=== PATIENT | female | born 1945 | race Caucasian/White ===

== ENCOUNTER 2024-01-18 09:51 | Inpatient (IN) ==
[2024-01-18] MEDS: LACTATED RINGERS 1,000 ML IV ONE (10:21)
[2024-01-18 10:37] LABS: Basophils # (Auto) 0.03 K/mcL (0.00-0.30); Basophils % (Auto) 0.6 % (0.0-2.0); Eosinophils # (Auto) 0.12 K/mcL (0.00-0.70); Eosinophils % (Auto) 2.4 % (0.0-7.0); Hematocrit 37.8 % (34.1-44.9); Hemoglobin 12.4 g/dL (11.2-15.7); Lymphocytes # (Auto) 0.97 K/mcL (1.50-4.80); Lymphocytes % (Auto) 19.3 % (15.5-49.0); Mean Cell Volume 96.9 fL (80.0-100.0); Mean Corpuscular HGB Conc 32.8 g/dL (31.0-36.0); Mean Platelet Volume 10.3 fL (8.8-12.5); Monocytes # (Auto) 0.37 K/mcL (0.10-0.90); Monocytes % (Auto) 7.4 % (1.0-12.0); Neutrophils % (Auto) 70.1 % (38.0-78.0); Platelet Count 157 K/mcL (140-440); Red Cell Distribution Width 12.6 % (11.5-14.5)
[2024-01-18 11:02] LABS: ALT/SGPT 12 U/L (<40); AST/SGOT 31 U/L (<32); Albumin 3.8 gm/dL (3.2-5.2); Albumin/Globulin Ratio 1.3 (1.0-2.3); Alkaline Phosphatase 88 U/L (39-117); Bilirubin,Total 0.4 mg/dL (0.1-1.0); Blood Urea Nitrogen 10 mg/dL (8-23); Calcium 9.2 mg/dL (8.6-10.4); Carbon Dioxide 22 mmol/L (22-30); Chloride 103 mmol/L (96-108); Globulin 2.9 gm/dL (2.2-3.7); Glomerular Filtration Rate 70; Glucose 120 mg/dL (70-105); Potassium 3.2 mmol/L (3.3-5.1); Sodium 138 mmol/L (133-145); Thyroid Stimulating Hormone 0.01 uIU/mL (0.27-5.01)
[2024-01-18 11:38] LABS: Appearance,Urine Clear (Clear); Bacteria,Urine Few /hpf (0); Bilirubin,Urine Negative (Negative); Color,Urine Yellow; Culture Indicated,Urine No; Glucose,Urine (UA) Negative (Negative); Ketones,Urine Negative (Negative); Leukocyte Esterase,Urine Moderate /uL (Negative); Nitrate,Urine Positive (Negative); PH,Urine 5.5 (5.0-9.0); Protein,Urine Trace mg/dL (Negative); Specific Gravity,Urine 1.025 (1.000-1.035); Urine Blood Small ery/mcL (Negative); Urine RBC 2 /hpf (0-3); Urine Squamous Epithelial Cell 6 /hpf (0-4); Urine WBC 15 /hpf (0-4); Urobilinogen,Urine Normal
[2024-01-18] MEDS: cefTRIAXone 2 GM in DEXTROSE 5% IN WATER 50 ML IV ONE (12:03)
[2024-01-18] MEDS: POTASSIUM CHLORIDE 20 MEQ PACKET PO ONE (13:20)
[2024-01-18] MEDS ORDERED: POLYETHYLENE GLYCOL 3350 17 GM PACKET PO PRN (13:39)
[2024-01-18] MEDS ORDERED: ACETAMINOPHEN 325 MG TABLET PO PRN (13:39)
[2024-01-18] MEDS ORDERED: SENNOSIDES 1 TABLET PO PRN (13:39)
[2024-01-18] MEDS ORDERED: ONDANSETRON 4 MG/2 ML VIAL IV PRN (13:39)
[2024-01-18] MEDS: 0.9 % SODIUM CHLORIDE 1,000 ML IV SCH (13:58)
[2024-01-18] MEDS: 0.9 % SODIUM CHLORIDE 10 ML SYRINGE IV SCH (14:03)
[2024-01-18] MEDS: PHENobarbital 32.4 MG TABLET PO SCH (15:00)
[2024-01-18] MEDS: LACTATED RINGERS 1,000 ML IV SCH (15:00)
[2024-01-18] MEDS: HEPARIN 5,000 UNIT/ML VIAL SQ SCH (20:54)
[2024-01-19 06:04] LABS: Basophils # (Auto) 0.03 K/mcL (0.00-0.30); Basophils % (Auto) 0.7 % (0.0-2.0); Eosinophils # (Auto) 0.25 K/mcL (0.00-0.70); Hematocrit 32.8 % (34.1-44.9); Hemoglobin 10.6 g/dL (11.2-15.7); Lymphocytes # (Auto) 0.96 K/mcL (1.50-4.80); Lymphocytes % (Auto) 23.1 % (15.5-49.0); Mean Cell Volume 99.1 fL (80.0-100.0); Mean Corpuscular HGB Conc 32.3 g/dL (31.0-36.0); Monocytes % (Auto) 9.6 % (1.0-12.0); Neutrophils % (Auto) 60.4 % (38.0-78.0); Platelet Count 129 K/mcL (140-440); RBC 3.31 M/mcL (3.59-5.38); Red Cell Distribution Width 12.6 % (11.5-14.5); WBC 4.2 K/mcL (4.5-11.0)
[2024-01-19 06:32] LABS: Phosphorous 3.4 mg/dL (2.5-4.5)
[2024-01-19 06:38] LABS: Blood Urea Nitrogen 8 mg/dL (8-23); Calcium 8.5 mg/dL (8.6-10.4); Carbon Dioxide 24 mmol/L (22-30); Chloride 106 mmol/L (96-108); Glomerular Filtration Rate 70; Glucose 94 mg/dL (70-105); Sodium 139 mmol/L (133-145)
[2024-01-19] MEDS: OMEPRAZOLE 20 MG CAPSULE PO SCH (07:37)
[2024-01-19] MEDS: cefTRIAXone 1 GM VIAL IV SCH (08:29)
[2024-01-20 06:09] LABS: Basophils # (Auto) 0.04 K/mcL (0.00-0.30); Basophils % (Auto) 0.9 % (0.0-2.0); Eosinophils # (Auto) 0.23 K/mcL (0.00-0.70); Eosinophils % (Auto) 5.3 % (0.0-7.0); Hematocrit 32.5 % (34.1-44.9); Hemoglobin 10.7 g/dL (11.2-15.7); Lymphocytes # (Auto) 0.92 K/mcL (1.50-4.80); Lymphocytes % (Auto) 21.1 % (15.5-49.0); Mean Cell Volume 97.3 fL (80.0-100.0); Mean Corpuscular HGB Conc 32.9 g/dL (31.0-36.0); Mean Platelet Volume 10.4 fL (8.8-12.5); Monocytes # (Auto) 0.44 K/mcL (0.10-0.90); Monocytes % (Auto) 10.1 % (1.0-12.0); Neutrophils % (Auto) 62.6 % (38.0-78.0); Platelet Count 137 K/mcL (140-440); RBC 3.34 M/mcL (3.59-5.38); Red Cell Distribution Width 12.4 % (11.5-14.5); WBC 4.4 K/mcL (4.5-11.0)
[2024-01-20 06:21] LABS: Phosphorous 2.7 mg/dL (2.5-4.5)
[2024-01-20 06:39] LABS: Blood Urea Nitrogen 11 mg/dL (8-23); Calcium 8.8 mg/dL (8.6-10.4); Carbon Dioxide 25 mmol/L (22-30); Chloride 106 mmol/L (96-108); Glomerular Filtration Rate 86; Glucose 100 mg/dL (70-105); Potassium 3.7 mmol/L (3.3-5.1); Sodium 140 mmol/L (133-145)
[2024-01-20] MEDS: MULTIVIT,THER IRON,CA,FA & MIN 1 TABLET PO SCH (08:29)
[2024-01-20] MEDS ORDERED: AMOXICILLIN/POTASSIUM CLAV 875 MG TABLET PO SCH (21:00)
== END 2024-01-20 10:57 | disposition home health service (06) | DRG 71 ==
LOC: ED 09:51 → MEDSUR 13:27
PROVIDERS: ADMIT Student in an Organized Health Care Education/Training Program; ATTEND Student in an Organized Health Care Education/Training Program